=== PATIENT | female | born 1940 | race Caucasian/White ===

== ENCOUNTER → 2016-12-10 | Outpatient (CLI) | payer OTHER, MEDICARE ==
--- NOTE | 2016-12-10 13:23 | CT ---
CT Brain (Without Contrast) 1222 hours History: Follow up left basal ganglia calcification. R90.89. Comparison: CT brain August 2016. Technique: Axial computed tomographic images of the brain without contrast. Dose reduction techniques were utilized. Findings: Minimal benign-appearing bilateral basal ganglia lentiform nuclei calcifications, left gre ater than right, appear stable since previous study, of no clinical significance. Ventricles, cistern s, and sulci are widened consistent with atrophy. No hydrocephalus, midline shift/herniation, or epid ural/subdural hematomas. No acute intraparenchymal hemorrhage or mass effect. Cerebrovascular atheros clerosis. Bone windows demonstrate no displaced fractures. Paranasal sinuses and mastoid air cells ar e clear. Impression: 1. Minimal atrophy. 2. No acute hemorrhage, hydrocephalus, or mass effect. 3. Cerebrovascular atherosclerosis. 4. No definite acute infarct. 5. Minimal benign stable microcalcifications bilateral lentiform nuclei/basal ganglia, of no clinical significance.
== END ==
LOC: FIMAGING 11:45
PROVIDERS: ATTEND Internal Medicine
DX: R90.89 Other abnormal findings on diagnostic imaging of central nervous system (principal)